=== PATIENT | female | born 1940 | race Caucasian/White ===

== ENCOUNTER 2018-05-19 09:32 | Emergency (ER) | payer MEDICARE, OTHER | END 2018-05-19 10:41 | disposition home or self-care (01) | LOC: BURERS 09:32 | DX: S61.412A Laceration without foreign body of left hand, initial encounter (principal); S00.83XA Contusion of other part of head, initial encounter; E03.9 Hypothyroidism, unspecified; E78.5 Hyperlipidemia, unspecified; I10 Essential (primary) hypertension; V00.831A Fall from motorized mobility scooter, initial encounter | CPT/HCPCS: 99283 ==

== ENCOUNTER 2018-05-31 13:48 | Inpatient (IN) | payer MEDICARE, OTHER ==
[2018-05-31] MEDS: Aspirin 81 mg Enteric Coated Tablet PO SCH (21:41)
[2018-05-31] MEDS: Cefdinir 300 MG CAP PO SCH (21:41)
[2018-05-31] MEDS: LOVASTATIN PO SCH (21:44)
[2018-05-31] MEDS: HYDROcodone/Acetaminophen 10/325 mg Tablet PO PRN (22:19)
[2018-06-01] MEDS: Levothyroxine Sodium 100 MCG TAB PO SCH (06:30)
[2018-06-01] MEDS: Potassium Chloride 20 MEQ TAB PO SCH (08:51)
[2018-06-01] MEDS: Cefdinir 300 MG CAP PO SCH ×2 (08:51→21:16)
[2018-06-01] MEDS: Aspirin 81 mg Enteric Coated Tablet PO SCH ×2 (08:51→21:16)
[2018-06-01] MEDS: HYDROcodone/Acetaminophen 10/325 mg Tablet PO PRN (11:34)
[2018-06-01] MEDS ORDERED: Ibuprofen 100 MG/5 ML UDCUP PO PRN (11:53)
--- NOTE | 2018-06-01 17:58 | HP ---
PRIMARY CARE PHYSICIAN: Dr. Lynn in [place]. CHIEF COMPLAINT: Skilled care with physical therapy status post right knee replacement. HISTORY OF PRESENT ILLNESS: Ms. Little is a pleasant 77-year-old female with hypertension, hyperlipidemia, hypothyroidism, multiple sclerosis, and vitamin D deficiency. She underwent elective right knee replacement on May 28, 2018, under Dr. Sheridan. She did fine intraoperatively, but developed urinary tract infection, acute renal insufficiency, and hypotension postoperatively. Her Benicar was held. Her blood pressure gradually improved, and creatinine on discharge was 1.3. The patient walked 120 feet 2 days postop using a rolling walker. She is able to maintain 50% partial weightbearing on right lower extremity. The patient still has a weak gait, decreased strength and insurance, hence recommendation for a senior care facility with physical therapy. Yesterday, she walked 136 feet using rolling walker with standby assist. She has [id number] pain on standing to sitting position. She denies pain at rest. Her appetite is fair. No urinary complaints. She has not had any bowel movement since Sunday. PAST MEDICAL HISTORY: 1. Hypertension. 2. Hyperlipidemia. 3. Hypothyroidism. 4. Chronic lower back pain. 5. Multiple sclerosis. 6. History of Zulema thyroiditis. 7. Vitamin D deficiency. 8. 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 PAST SURGICAL HISTORY: 1. Lumbar fusion in 2006, under Dr. Marc. 2. Left revision of shoulder replacement in 2010. 3. Right hip replacement on 09/21/2009. 4. Right lateral meniscectomy on 08/27/2015. FAMILY HISTORY: Both parents are . No family history of hypertension, cancer, or end-stage renal disease. SOCIAL HISTORY: The patient denies alcohol or tobacco use. She is , with 2 children. 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 ALLERGIES: 1. BACTRIM. 2. BENADRYL. 3. CELEBREX. 4. CODEINE. 5. DILANTIN. 6. LIPITOR. 7. LORTAB. 8. NALOXONE. 9. TALWIN. 10. ULTRAM. MEDICATIONS: 1. Lovastatin 10 mg one tablet daily. 2. Aspirin 81 mg b.i.d. 3. Cefdinir 300 mg b.i.d. 4. Vitamin D3 of 2000 units daily. 5. Clonidine 0.1 mg patch every 7 days. 6. Hydrocodone 10/325 one tablet every 4 hours p.r.n. for pain. 7. Levothyroxine 100 mcg one tablet daily. 8. Metoprolol 100 mg p.o. b.i.d. 9. Myrbetriq 25 mg q.a.m. 10. K-Dur 20 mEq daily. REVIEW OF SYSTEMS: GENERAL: No fever. No chills. No loss of appetite. HEENT: No blurred vision. No sore throat. CARDIOVASCULAR: No chest pain. No palpitation. RESPIRATORY: No shortness of breath or wheezing. GI: No nausea, vomiting, or diarrhea. MUSCULOSKELETAL: Positive for pain on the right knee with stiffness secondary to recent surgery. PSYCH: No anxiety. No depression. PHYSICAL EXAMINATION: VITAL SIGNS: Blood pressure 105/55, temperature 98.1, pulse of 68, respiratory rate of 18, and O2 saturation 95% on room air. GENERAL: The patient is alert, oriented, not in respiratory distress. HEENT: Normocephalic, atraumatic. Pupils are equally reactive to light. NECK: Supple. Negative for lymphadenopathy. CHEST AND LUNGS: Symmetrical expansion. Clear to auscultation. HEART: Regular rate and rhythm. Negative for murmur, rubs, or gallops. ABDOMEN: Soft, nontender. Normoactive bowel sounds. No CVA tenderness. EXTREMITIES: Positive for incision on right knee, clean, dry, intact with minimal tenderness. Noticeable incision site on the right knee joint, decreased range of motion. PSYCH: Appropriate affect and demeanor. LABORATORY DATA: Labs reviewed. ASSESSMENT: 1. Right lower extremity weakness status post right knee replacement. 2. Postoperative renal insufficiency. 3. Postoperative urinary tract infection. 4. Hypertension. 5. Hyperlipidemia. 6. Hypothyroidism. 7. Multiple sclerosis. 8. Vitamin D deficiency. PLAN: 1. The patient is admitted for skilled with physical and occupational therapy. Prognosis for significant improvement with reasonable time appears good. We will monitor for infection, bleeding, pain management, and side effects of current medications. She will participate with PT to address strength, range of motion, transfer training, gait transfers, and family training and safety training with progression to home exercises. She will participate with OT to address ADLs. We will reconcile her hospital medication and adjust dosage prior to her discharge. channel development manager to address how the patient can be discharged safely in a timely manner. Anticipate discharge to home in about 2 weeks. 2. We will also monitor for kidney function and start Benicar with hydrochlorothiazide if her blood pressure gets high. Job ID: [id number]
[2018-06-01] MEDS: LOVASTATIN PO SCH (21:24)
[2018-06-02 05:56] LABS: Anion Gap 12 mmol/L (10-20); BUN (Urea Nitrogen) 20 mg/dL (9.8-20.1); Calc. Creatinine Clearance 58 mL/min (70-130); Carbon Dioxide 23 mmol/L (23-31); Chloride 109 mmol/L (98-107); Estimated GFR-MDRD 64; Glucose 98 mg/dL (83-110); Potassium 3.8 mmol/L (3.5-5.1); Sodium 140 mmol/L (136-145)
[2018-06-02] MEDS: Levothyroxine Sodium 100 MCG TAB PO SCH (06:02)
[2018-06-02] MEDS: Cefdinir 300 MG CAP PO SCH ×2 (09:03→20:52)
[2018-06-02] MEDS: Potassium Chloride 20 MEQ TAB PO SCH (09:04)
[2018-06-02] MEDS: Aspirin 81 mg Enteric Coated Tablet PO SCH ×2 (09:04→20:52)
[2018-06-02] MEDS: LOVASTATIN PO SCH (20:57)
[2018-06-03] MEDS: HYDROcodone/Acetaminophen 10/325 mg Tablet PO PRN ×2 (02:40→08:20)
[2018-06-03] MEDS: Levothyroxine Sodium 100 MCG TAB PO SCH (05:31)
[2018-06-03] MEDS: Aspirin 81 mg Enteric Coated Tablet PO SCH ×2 (08:22→21:09)
[2018-06-03] MEDS: Potassium Chloride 20 MEQ TAB PO SCH (08:22)
[2018-06-03] MEDS: Cefdinir 300 MG CAP PO SCH ×2 (10:10→21:08)
[2018-06-03] MEDS: cloNIDine 0.1mg/24 Hour PATCH TD SCH (10:11)
[2018-06-03] MEDS: Acetaminophen 325 MG TAB PO PRN (21:07)
[2018-06-03] MEDS: LOVASTATIN PO SCH (21:08)
[2018-06-04] MEDS: Levothyroxine Sodium 100 MCG TAB PO SCH (05:45)
[2018-06-04] MEDS: HYDROcodone/Acetaminophen 10/325 mg Tablet PO PRN ×3 (08:32→19:47)
[2018-06-04] MEDS: Aspirin 81 mg Enteric Coated Tablet PO SCH ×2 (08:48→20:29)
[2018-06-04] MEDS: Potassium Chloride 20 MEQ TAB PO SCH (08:49)
[2018-06-04] MEDS: LOVASTATIN PO SCH (20:30)
[2018-06-05] MEDS: Levothyroxine Sodium 100 MCG TAB PO SCH (06:02)
[2018-06-05] MEDS: HYDROcodone/Acetaminophen 10/325 mg Tablet PO PRN ×2 (08:01→21:01)
[2018-06-05] MEDS: Aspirin 81 mg Enteric Coated Tablet PO SCH ×2 (10:57→20:59)
[2018-06-05] MEDS: Potassium Chloride 20 MEQ TAB PO SCH (10:58)
[2018-06-05] MEDS: LOVASTATIN PO SCH (21:04)
[2018-06-06] MEDS: Levothyroxine Sodium 100 MCG TAB PO SCH (05:43)
[2018-06-06] MEDS: Aspirin 81 mg Enteric Coated Tablet PO SCH ×2 (08:36→21:26)
[2018-06-06] MEDS: Potassium Chloride 20 MEQ TAB PO SCH (08:38)
[2018-06-06] MEDS: HYDROcodone/Acetaminophen 10/325 mg Tablet PO PRN (11:05)
[2018-06-06] MEDS: LOVASTATIN PO SCH (21:27)
[2018-06-07] MEDS: Levothyroxine Sodium 100 MCG TAB PO SCH (05:18)
[2018-06-07] MEDS: HYDROcodone/Acetaminophen 10/325 mg Tablet PO PRN ×2 (08:26→14:15)
[2018-06-07] MEDS: Aspirin 81 mg Enteric Coated Tablet PO SCH ×2 (08:28→20:33)
[2018-06-07] MEDS: Potassium Chloride 20 MEQ TAB PO SCH (08:28)
[2018-06-07] MEDS ORDERED: LIOTHYRONINE 5 MCG PO SCH (17:45)
[2018-06-07] MEDS: LOVASTATIN PO SCH (20:34)
[2018-06-08] MEDS: HYDROcodone/Acetaminophen 10/325 mg Tablet PO PRN ×2 (01:55→10:04)
[2018-06-08] MEDS: Levothyroxine Sodium 100 MCG TAB PO SCH (05:58)
[2018-06-08] MEDS: LIOTHYRONINE 5 MCG PO SCH ×2 (05:58→11:00)
[2018-06-08] MEDS: Potassium Chloride 20 MEQ TAB PO SCH (09:55)
[2018-06-08] MEDS: Aspirin 81 mg Enteric Coated Tablet PO SCH ×2 (09:56→21:16)
[2018-06-08] MEDS: Acetaminophen 325 MG TAB PO PRN (21:16)
[2018-06-08] MEDS: LOVASTATIN PO SCH (21:17)
[2018-06-09] MEDS: Levothyroxine Sodium 100 MCG TAB PO SCH (05:59)
[2018-06-09] MEDS: LIOTHYRONINE 5 MCG PO SCH ×2 (06:01→11:00)
[2018-06-09] MEDS: Aspirin 81 mg Enteric Coated Tablet PO SCH ×2 (09:46→21:15)
[2018-06-09] MEDS: Potassium Chloride 20 MEQ TAB PO SCH (09:46)
[2018-06-09] MEDS: HYDROcodone/Acetaminophen 10/325 mg Tablet PO PRN (14:52)
[2018-06-09] MEDS: LOVASTATIN PO SCH (21:14)
[2018-06-09] MEDS ORDERED: Ibuprofen 100 MG/5 ML UDCUP ONE (21:23)
[2018-06-10 03:13] VITALS: BMI 26.7
[2018-06-10] MEDS: Levothyroxine Sodium 100 MCG TAB PO SCH (05:24)
[2018-06-10] MEDS: LIOTHYRONINE 5 MCG PO SCH ×2 (05:25→11:58)
[2018-06-10] MEDS: Potassium Chloride 20 MEQ TAB PO SCH (08:57)
[2018-06-10] MEDS: Amlodipine 5 MG TAB PO SCH (09:01)
[2018-06-10] MEDS: HYDROcodone/Acetaminophen 10/325 mg Tablet PO PRN (09:08)
[2018-06-10] MEDS: cloNIDine 0.1mg/24 Hour PATCH TD SCH (09:09)
[2018-06-10] MEDS: Aspirin 81 mg Enteric Coated Tablet PO SCH ×2 (10:43→20:31)
[2018-06-10] MEDS ORDERED: SMX/TMP 800-160mg/20 ML UDCUP ONE (13:59)
[2018-06-10] MEDS ORDERED: Ibuprofen 200 MG TAB PO PRN (16:30)
[2018-06-10] MEDS: LOVASTATIN PO SCH (20:31)
[2018-06-11] MEDS: HYDROcodone/Acetaminophen 10/325 mg Tablet PO PRN ×2 (02:02→08:25)
[2018-06-11] MEDS: Levothyroxine Sodium 100 MCG TAB PO SCH (05:43)
[2018-06-11] MEDS: Liothyronine Sodium 5 MCG TAB PO SCH ×2 (05:45→11:03)
[2018-06-11] MEDS: Aspirin 81 mg Enteric Coated Tablet PO SCH ×2 (09:33→20:51)
[2018-06-11] MEDS: Amlodipine 5 MG TAB PO SCH (09:33)
[2018-06-11] MEDS: Potassium Chloride 20 MEQ TAB PO SCH (09:34)
[2018-06-11] MEDS: LOVASTATIN PO SCH (20:52)
[2018-06-12] MEDS: Levothyroxine Sodium 100 MCG TAB PO SCH (06:09)
[2018-06-12] MEDS: Liothyronine Sodium 5 MCG TAB PO SCH ×2 (06:09→11:16)
[2018-06-12 06:26] VITALS: TEMP 97.8
[2018-06-12 06:32] VITALS: BP 111/60
[2018-06-12] MEDS: HYDROcodone/Acetaminophen 10/325 mg Tablet PO PRN (08:45)
[2018-06-12] MEDS: Amlodipine 5 MG TAB PO SCH (08:46)
[2018-06-12] MEDS: Aspirin 81 mg Enteric Coated Tablet PO SCH (08:47)
[2018-06-12] MEDS: Potassium Chloride 20 MEQ TAB PO SCH (08:48)
== END 2018-06-12 14:45 | disposition home or self-care (01) | DRG 561 ==
LOC: BURMED 14:19
PROVIDERS: ADMIT Family Medicine; ATTEND Family Medicine
DX: Z47.1 Aftercare following joint replacement surgery (principal); I10 Essential (primary) hypertension; E78.5 Hyperlipidemia, unspecified; E03.9 Hypothyroidism, unspecified; G35 Multiple sclerosis; E55.9 Vitamin D deficiency, unspecified; G89.29 Other chronic pain; M54.5 Low back pain; R53.1 Weakness; Z96.612 Presence of left artificial shoulder joint; Z96.641 Presence of right artificial hip joint; Z87.440 Personal history of urinary (tract) infections; Z86.73 Personal history of transient ischemic attack (TIA), and cerebral infarction without residual deficits; Z98.1 Arthrodesis status; Z79.82 Long term (current) use of aspirin
CPT/HCPCS: 36415; 80048

== ENCOUNTER 2019-07-30 18:36 | Emergency (ER) | payer MEDICARE, OTHER ==
[2019-07-30 19:04] LABS: #Basophils 0.1 thou/uL (0.0-0.2); #Eosinphils 0.2 thou/uL (0.0-0.7); #Lymphocytes 1.4 thou/uL (1.20-3.40); #Monocytes 0.7 thou/uL (0.11-0.59); %Basophils 1.1 % (0.0-1.0); %Eosinophils 2.9 % (0.0-10.0); %Lymphocytes 21.5 % (21.0-51.0); %Monocytes 11.1 % (0.0-10.0); %Neutrophils 63.4 % (42.0-75.0); Hemoglobin 14.6 g/dL (12.0-16.0); Mean Corpuscular HGB CONC 31.8 g/dL (32.0-36.0); Mean Corpuscular Hemoglobin 31.8 pg (27.0-31.0); Mean Platelet Volume 7.7 fL (7.4-10.4); Platelet Count 193 thou/uL (130-400); RBC Distribution Width 12.9 % (11.5-14.5); Red Blood Cell (RBC) Count 4.57 mill/uL (4.20-5.40); White Blood Cell (WBC) Count 6.3 thou/uL (4.8-10.8)
[2019-07-30 19:05] LABS: INR-International Normal Ratio 0.9; PTT 29.9 SEC (22.9-36.1); Prothrombin Time 12.6 SEC (12.0-14.7)
[2019-07-30 19:13] LABS: ALT (SGPT) 30 U/L (8-55); AST (SGOT) 30 U/L (5-34); Albumin 3.9 g/dL (3.4-4.8); Alkaline Phosphatase 86 U/L (40-110); Anion Gap 17 mmol/L (10-20); BUN (Urea Nitrogen) 30 mg/dL (9.8-20.1); Bilirubin, Total 0.4 mg/dL (0.2-1.2); Calc. Creatinine Clearance 0 mL/min (70-130); Calcium 9.6 mg/dL (7.8-10.44); Carbon Dioxide 23 mmol/L (23-31); Chloride 107 mmol/L (98-107); Estimated GFR-MDRD 33; Globulin 3.3 g/dL (2.4-3.5); Glucose 128 mg/dL (83-110); Potassium 3.9 mmol/L (3.5-5.1); Protein, Total 7.2 g/dL (6.0-8.3); Sodium 143 mmol/L (136-145)
[2019-07-30] MEDS ORDERED: Fentanyl 100 MCG/2 ML VIAL ONE (19:13)
--- NOTE | 2019-07-30 20:20 | RAD ---
PELVIS 07/30/19 Two films are submitted and compared with a prior study of 09/21/09. There is an impacted subcapital fracture through the left femoral neck. There is no dislocation of th e femoral head. The left hip joint is narrowed. An arthroplasty is seen involving the right hip. The adjacent pubic rings are intact and the symphysis shows no widening or off-set. The SI joints are sym metrical. The top to the iliac crests are not seen on this film. IMPRESSION: Impacted subcapital fracture of the left femoral neck. Findings discussed with Dr. Rosales at 1922. POS: HOME
--- NOTE | 2019-07-30 20:21 | RAD ---
LEFT HIP TWO VIEWS: 07/30/19 An impacted subcapital fracture of the left femoral neck is present. It was not present on a 2010 elissa dy of the pelvis. The adjacent pubic ring appears intact. There is no dislocation of the femoral head . IMPRESSION: Impacted subcapital fracture of the left femoral neck. Findings discussed with Dr. Rosales at 1922 on 07/30/2019. POS: HOME
== END 2019-07-30 19:52 | disposition short-term general hospital (02) ==
LOC: BURERS 18:36
DX: S72.012A Unspecified intracapsular fracture of left femur, initial encounter for closed fracture (principal); E03.9 Hypothyroidism, unspecified; E78.5 Hyperlipidemia, unspecified; I10 Essential (primary) hypertension; Z86.73 Personal history of transient ischemic attack (TIA), and cerebral infarction without residual deficits; W18.30XA Fall on same level, unspecified, initial encounter
CPT/HCPCS: 72170; 80053; 85025; 85610; 85730; 96374; J3010

== ENCOUNTER 2019-08-02 15:59 | Inpatient (IN) | payer MEDICARE, OTHER ==
[2019-08-02 16:39] VITALS: BMI 28.3
[2019-08-02] MEDS ORDERED: cloNIDine 0.1 MG TAB PO PRN (18:58)
[2019-08-02] MEDS: Aspirin 81 mg Enteric Coated Tablet PO SCH (20:15)
[2019-08-02] MEDS ORDERED: LOVASTATIN 40 MG PO SCH (21:00)
[2019-08-02] MEDS: Acetaminophen 500 MG TAB PO SCH (23:22)
[2019-08-03] MEDS ORDERED: Levothyroxine Sodium 75 MCG TAB PO SCH (06:00)
[2019-08-03] MEDS: Acetaminophen 500 MG TAB PO SCH ×4 (06:01→23:54)
[2019-08-03] MEDS: Levothyroxine Sodium 25 MCG TAB PO SCH (06:05)
[2019-08-03] MEDS: Liothyronine Sodium 5 MCG TAB PO SCH (08:34)
[2019-08-03] MEDS: Aspirin 81 mg Enteric Coated Tablet PO SCH ×2 (08:34→20:20)
[2019-08-03] MEDS: Potassium Chloride 20 MEQ TAB PO SCH (08:35)
[2019-08-03] MEDS: Amlodipine 5 MG TAB PO SCH (08:35)
[2019-08-03] MEDS: Hydrochlorothiazide 25 MG TAB PO SCH (08:36)
[2019-08-03] MEDS: Losartan Potassium 50 MG TAB PO SCH (08:36)
[2019-08-03] MEDS ORDERED: [UNRECOGNIZED DRUG - OTHER] PO SCH (09:00)
[2019-08-03] MEDS ORDERED: cloNIDine 0.1mg/24 Hour PATCH TD SCH (09:00)
[2019-08-03 16:14] LABS: Bilirubin Negative (Negative); Blood, Urine Small (Negative); Clarity Clear (Clear); Glucose, Urine (Dipstick) Negative (Negative); Leukocyte Trace (Negative); Nitrite Negative (Negative); Protein, Urine (Dipstick) Trace mg/dL (Neg-Trace); Urobilinogen 0.2 mg/dL (Less than 2)
[2019-08-03 16:21] LABS: Bacteria/HPF Rare-Few HPF (None Seen); Broad Cast None Seen LPF (None Seen); Calcium Oxalate Crystals None Seen HPF (None Seen); Cellular Cast None Seen LPF (None Seen); Epithelial Cast None Seen LPF (None Seen); Fatty Cast None Seen LPF (None Seen); Mucous/LPF None Seen LPF (<2+); Other Casts None Seen LPF (None Seen); Oval Fat Bodies/HPF None Seen HPF (None Seen); RBC/HPF 0-3 HPF (0-3); Red Blood Cell Cast None Seen LPF (None Seen); Renal Epithelial None Seen HPF (None Seen); Sperm/HPF None Seen HPF (None Seen); Squamous Epithelial None Seen HPF (0-3); Transitional Epithelial None Seen HPF (None Seen); Trichomonas/HPF None Seen HPF (None Seen); Triple Phosphate Crystal None Seen HPF (None Seen); Unclassified Crystals None Seen HPF (None Seen); Waxy Cast None Seen LPF (None Seen); White Blood Cell Cast None Seen LPF (None Seen); Yeast-Budding None Seen HPF (None Seen); Yeast-Hyphae None Seen HPF (None Seen)
[2019-08-04] MEDS: Acetaminophen 500 MG TAB PO SCH ×4 (05:31→23:58)
[2019-08-04] MEDS: Levothyroxine Sodium 25 MCG TAB PO SCH (05:32)
[2019-08-04] MEDS: Hydrochlorothiazide 25 MG TAB PO SCH (08:21)
[2019-08-04] MEDS: Aspirin 81 mg Enteric Coated Tablet PO SCH ×2 (08:21→20:26)
[2019-08-04] MEDS: Amlodipine 5 MG TAB PO SCH (08:22)
[2019-08-04] MEDS: Losartan Potassium 50 MG TAB PO SCH (08:22)
[2019-08-04] MEDS: Potassium Chloride 20 MEQ TAB PO SCH (08:23)
[2019-08-04] MEDS: Liothyronine Sodium 5 MCG TAB PO SCH (08:23)
[2019-08-04] MEDS: cloNIDine 0.1mg/24 Hour PATCH TD SCH (08:23)
[2019-08-04] MEDS: Ibuprofen 600 MG TAB PO PRN (15:43)
[2019-08-05] MEDS: Levothyroxine Sodium 25 MCG TAB PO SCH (05:41)
[2019-08-05] MEDS: Acetaminophen 500 MG TAB PO SCH ×4 (05:41→23:27)
[2019-08-05] MEDS: Amlodipine 5 MG TAB PO SCH (09:02)
[2019-08-05] MEDS: Liothyronine Sodium 5 MCG TAB PO SCH (09:03)
[2019-08-05] MEDS: Potassium Chloride 20 MEQ TAB PO SCH (09:03)
[2019-08-05] MEDS: Hydrochlorothiazide 25 MG TAB PO SCH (09:04)
[2019-08-05] MEDS: Losartan Potassium 50 MG TAB PO SCH (09:05)
[2019-08-05] MEDS: Aspirin 81 mg Enteric Coated Tablet PO SCH ×2 (09:05→20:18)
[2019-08-06] MEDS: Levothyroxine Sodium 25 MCG TAB PO SCH (05:40)
[2019-08-06] MEDS: Acetaminophen 500 MG TAB PO SCH ×4 (05:40→23:08)
[2019-08-06] MEDS: Losartan Potassium 50 MG TAB PO SCH (08:38)
[2019-08-06] MEDS: Potassium Chloride 20 MEQ TAB PO SCH (08:38)
[2019-08-06] MEDS: Liothyronine Sodium 5 MCG TAB PO SCH (08:38)
[2019-08-06] MEDS: Aspirin 81 mg Enteric Coated Tablet PO SCH ×2 (08:38→20:40)
[2019-08-06] MEDS: Hydrochlorothiazide 25 MG TAB PO SCH (08:39)
[2019-08-06] MEDS: Amlodipine 5 MG TAB PO SCH (08:43)
[2019-08-06] MEDS: Ibuprofen 600 MG TAB PO PRN (10:17)
[2019-08-07] MEDS: Levothyroxine Sodium 25 MCG TAB PO SCH (05:42)
[2019-08-07] MEDS: Acetaminophen 500 MG TAB PO SCH ×4 (05:43→23:57)
[2019-08-07] MEDS: Ibuprofen 600 MG TAB PO PRN (09:30)
[2019-08-07] MEDS: Aspirin 81 mg Enteric Coated Tablet PO SCH ×2 (09:31→20:45)
[2019-08-07] MEDS: Potassium Chloride 20 MEQ TAB PO SCH (09:31)
[2019-08-07] MEDS: Amlodipine 5 MG TAB PO SCH (09:31)
[2019-08-07] MEDS: Hydrochlorothiazide 25 MG TAB PO SCH (09:35)
[2019-08-07] MEDS: Liothyronine Sodium 5 MCG TAB PO SCH (09:36)
[2019-08-07] MEDS: Losartan Potassium 50 MG TAB PO SCH (09:36)
[2019-08-08] MEDS: Levothyroxine Sodium 25 MCG TAB PO SCH (05:49)
[2019-08-08] MEDS: Acetaminophen 500 MG TAB PO SCH ×4 (05:49→23:53)
[2019-08-08] MEDS: Ibuprofen 600 MG TAB PO PRN (08:49)
[2019-08-08] MEDS: Losartan Potassium 50 MG TAB PO SCH (08:50)
[2019-08-08] MEDS: Hydrochlorothiazide 25 MG TAB PO SCH (08:50)
[2019-08-08] MEDS: Aspirin 81 mg Enteric Coated Tablet PO SCH ×2 (08:51→20:42)
[2019-08-08] MEDS: Potassium Chloride 20 MEQ TAB PO SCH (08:51)
[2019-08-08] MEDS: Liothyronine Sodium 5 MCG TAB PO SCH (08:51)
[2019-08-08] MEDS: Amlodipine 5 MG TAB PO SCH (08:51)
[2019-08-09] MEDS: Levothyroxine Sodium 25 MCG TAB PO SCH (05:57)
[2019-08-09] MEDS: Acetaminophen 500 MG TAB PO SCH ×4 (05:57→23:28)
[2019-08-09] MEDS: Aspirin 81 mg Enteric Coated Tablet PO SCH ×2 (08:33→20:20)
[2019-08-09] MEDS: Losartan Potassium 50 MG TAB PO SCH (08:34)
[2019-08-09] MEDS: Hydrochlorothiazide 25 MG TAB PO SCH (08:36)
[2019-08-09] MEDS: Liothyronine Sodium 5 MCG TAB PO SCH (08:37)
[2019-08-09] MEDS: Amlodipine 5 MG TAB PO SCH (08:37)
[2019-08-09] MEDS: Potassium Chloride 20 MEQ TAB PO SCH (08:38)
[2019-08-10] MEDS: Acetaminophen 500 MG TAB PO SCH ×4 (05:31→23:43)
[2019-08-10] MEDS: Levothyroxine Sodium 25 MCG TAB PO SCH (05:31)
[2019-08-10] MEDS: Aspirin 81 mg Enteric Coated Tablet PO SCH ×2 (08:46→20:47)
[2019-08-10] MEDS: Amlodipine 5 MG TAB PO SCH (08:46)
[2019-08-10] MEDS: Liothyronine Sodium 5 MCG TAB PO SCH (08:47)
[2019-08-10] MEDS: Hydrochlorothiazide 25 MG TAB PO SCH (08:47)
[2019-08-10] MEDS: Potassium Chloride 20 MEQ TAB PO SCH (08:47)
[2019-08-10] MEDS: Losartan Potassium 50 MG TAB PO SCH (08:48)
[2019-08-11] MEDS: Levothyroxine Sodium 25 MCG TAB PO SCH (05:26)
[2019-08-11] MEDS: Acetaminophen 500 MG TAB PO SCH ×3 (05:26→17:21)
[2019-08-11] MEDS: Liothyronine Sodium 5 MCG TAB PO SCH (08:13)
[2019-08-11] MEDS: Potassium Chloride 20 MEQ TAB PO SCH (08:14)
[2019-08-11] MEDS: Hydrochlorothiazide 25 MG TAB PO SCH (08:14)
[2019-08-11] MEDS: Amlodipine 5 MG TAB PO SCH (08:14)
[2019-08-11] MEDS: Ibuprofen 600 MG TAB PO PRN (08:14)
[2019-08-11] MEDS: Aspirin 81 mg Enteric Coated Tablet PO SCH ×2 (08:14→20:31)
[2019-08-11] MEDS: Losartan Potassium 50 MG TAB PO SCH (08:15)
[2019-08-11] MEDS: cloNIDine 0.1mg/24 Hour PATCH TD SCH (08:16)
[2019-08-12] MEDS: Acetaminophen 500 MG TAB PO SCH ×4 (00:06→17:19)
[2019-08-12] MEDS: Levothyroxine Sodium 25 MCG TAB PO SCH (05:30)
[2019-08-12] MEDS: Potassium Chloride 20 MEQ TAB PO SCH (08:32)
[2019-08-12] MEDS: Liothyronine Sodium 5 MCG TAB PO SCH (08:32)
[2019-08-12] MEDS: Losartan Potassium 50 MG TAB PO SCH (08:32)
[2019-08-12] MEDS: Amlodipine 5 MG TAB PO SCH (08:32)
[2019-08-12] MEDS: Ibuprofen 600 MG TAB PO PRN (08:32)
[2019-08-12] MEDS: Hydrochlorothiazide 25 MG TAB PO SCH (08:33)
[2019-08-12] MEDS: Aspirin 81 mg Enteric Coated Tablet PO SCH ×2 (08:33→20:47)
[2019-08-13] MEDS: Acetaminophen 500 MG TAB PO SCH ×5 (00:06→23:25)
[2019-08-13] MEDS: Levothyroxine Sodium 25 MCG TAB PO SCH (05:28)
[2019-08-13] MEDS: Losartan Potassium 50 MG TAB PO SCH (08:31)
[2019-08-13] MEDS: Aspirin 81 mg Enteric Coated Tablet PO SCH ×2 (08:32→20:22)
[2019-08-13] MEDS: Amlodipine 5 MG TAB PO SCH (08:32)
[2019-08-13] MEDS: Potassium Chloride 20 MEQ TAB PO SCH (08:33)
[2019-08-13] MEDS: Hydrochlorothiazide 25 MG TAB PO SCH (08:33)
[2019-08-13] MEDS: Liothyronine Sodium 5 MCG TAB PO SCH (08:34)
[2019-08-14] MEDS: Acetaminophen 500 MG TAB PO SCH ×4 (05:39→23:43)
[2019-08-14] MEDS: Levothyroxine Sodium 25 MCG TAB PO SCH (05:40)
[2019-08-14] MEDS: Aspirin 81 mg Enteric Coated Tablet PO SCH ×2 (09:57→21:16)
[2019-08-14] MEDS: Potassium Chloride 20 MEQ TAB PO SCH (09:57)
[2019-08-14] MEDS: Losartan Potassium 50 MG TAB PO SCH (09:57)
[2019-08-14] MEDS: Hydrochlorothiazide 25 MG TAB PO SCH (09:58)
[2019-08-14] MEDS: Amlodipine 5 MG TAB PO SCH (09:58)
[2019-08-14] MEDS: Liothyronine Sodium 5 MCG TAB PO SCH (09:59)
[2019-08-15] MEDS: Levothyroxine Sodium 25 MCG TAB PO SCH (05:35)
[2019-08-15] MEDS: Acetaminophen 500 MG TAB PO SCH ×3 (05:35→17:23)
[2019-08-15] MEDS: Potassium Chloride 20 MEQ TAB PO SCH (08:16)
[2019-08-15] MEDS: Amlodipine 10 MG TAB PO SCH (08:17)
[2019-08-15] MEDS: Hydrochlorothiazide 25 MG TAB PO SCH (08:17)
[2019-08-15] MEDS: Losartan Potassium 50 MG TAB PO SCH (08:17)
[2019-08-15] MEDS: Aspirin 81 mg Enteric Coated Tablet PO SCH ×2 (08:17→20:23)
[2019-08-15] MEDS: Liothyronine Sodium 5 MCG TAB PO SCH (08:17)
[2019-08-15] MEDS: Ibuprofen 600 MG TAB PO PRN (14:08)
[2019-08-16] MEDS: Acetaminophen 500 MG TAB PO SCH ×5 (00:42→23:30)
[2019-08-16] MEDS: Levothyroxine Sodium 25 MCG TAB PO SCH (05:46)
[2019-08-16] MEDS: Losartan Potassium 50 MG TAB PO SCH (08:46)
[2019-08-16] MEDS: Potassium Chloride 20 MEQ TAB PO SCH (08:47)
[2019-08-16] MEDS: Hydrochlorothiazide 25 MG TAB PO SCH (08:47)
[2019-08-16] MEDS: Liothyronine Sodium 5 MCG TAB PO SCH (08:47)
[2019-08-16] MEDS: Amlodipine 10 MG TAB PO SCH (08:48)
[2019-08-16] MEDS: Aspirin 81 mg Enteric Coated Tablet PO SCH ×2 (08:49→20:01)
[2019-08-16] MEDS: Ibuprofen 600 MG TAB PO PRN (16:48)
[2019-08-17] MEDS: Acetaminophen 500 MG TAB PO SCH ×4 (05:44→23:46)
[2019-08-17] MEDS: Levothyroxine Sodium 25 MCG TAB PO SCH (05:44)
[2019-08-17] MEDS: Hydrochlorothiazide 25 MG TAB PO SCH (09:33)
[2019-08-17] MEDS: Losartan Potassium 50 MG TAB PO SCH (09:33)
[2019-08-17] MEDS: Potassium Chloride 20 MEQ TAB PO SCH (09:34)
[2019-08-17] MEDS: Liothyronine Sodium 5 MCG TAB PO SCH (09:34)
[2019-08-17] MEDS: Amlodipine 10 MG TAB PO SCH (09:34)
[2019-08-17] MEDS: Aspirin 81 mg Enteric Coated Tablet PO SCH ×2 (09:35→20:22)
[2019-08-18] MEDS: Acetaminophen 500 MG TAB PO SCH ×4 (05:28→23:50)
[2019-08-18] MEDS: Levothyroxine Sodium 25 MCG TAB PO SCH (05:29)
[2019-08-18] MEDS: cloNIDine 0.1mg/24 Hour PATCH TD SCH (09:06)
[2019-08-18] MEDS: Amlodipine 10 MG TAB PO SCH (09:08)
[2019-08-18] MEDS: Hydrochlorothiazide 25 MG TAB PO SCH (09:08)
[2019-08-18] MEDS: Liothyronine Sodium 5 MCG TAB PO SCH (09:08)
[2019-08-18] MEDS: Potassium Chloride 20 MEQ TAB PO SCH (09:09)
[2019-08-18] MEDS: Losartan Potassium 50 MG TAB PO SCH (09:09)
[2019-08-18] MEDS: Aspirin 81 mg Enteric Coated Tablet PO SCH ×2 (09:09→20:17)
[2019-08-18] MEDS: Ibuprofen 600 MG TAB PO PRN (09:11)
[2019-08-19] MEDS: Levothyroxine Sodium 25 MCG TAB PO SCH (05:47)
[2019-08-19] MEDS: Acetaminophen 500 MG TAB PO SCH (05:47)
[2019-08-19] MEDS: Potassium Chloride 20 MEQ TAB PO SCH (08:56)
[2019-08-19] MEDS: Aspirin 81 mg Enteric Coated Tablet PO SCH (08:56)
[2019-08-19] MEDS: Liothyronine Sodium 5 MCG TAB PO SCH (08:56)
[2019-08-19] MEDS: Losartan Potassium 50 MG TAB PO SCH (08:57)
[2019-08-19] MEDS: Amlodipine 10 MG TAB PO SCH (08:57)
[2019-08-19] MEDS: Hydrochlorothiazide 25 MG TAB PO SCH (08:57)
[2019-08-19 10:29] VITALS: BP 136/65; TEMP 97.9
[2019-08-19 11:08] LABS: Anion Gap 15 mmol/L (10-20); BUN (Urea Nitrogen) 35 mg/dL (9.8-20.1); Calc. Creatinine Clearance 46 mL/min (70-130); Calcium 10.1 mg/dL (7.8-10.44); Carbon Dioxide 24 mmol/L (23-31); Chloride 105 mmol/L (98-107); Estimated GFR-MDRD 46; Glucose 81 mg/dL (83-110); Potassium 3.9 mmol/L (3.5-5.1); Sodium 140 mmol/L (136-145)
== END 2019-08-19 11:20 | disposition home health service (06) | DRG 561 ==
LOC: BURMED 15:59
PROVIDERS: ADMIT Family Medicine; ATTEND Family Medicine
DX: Z47.1 Aftercare following joint replacement surgery (principal); E03.9 Hypothyroidism, unspecified; I10 Essential (primary) hypertension; E06.3 Autoimmune thyroiditis; S72.002D Fracture of unspecified part of neck of left femur, subsequent encounter for closed fracture with routine healing; Z91.81 History of falling; Z88.8 Allergy status to other drugs, medicaments and biological substances; Z88.6 Allergy status to analgesic agent; Z88.2 Allergy status to sulfonamides
CPT/HCPCS: 36415; 80048; 81001; 87086

== ENCOUNTER 2021-10-09 09:59 | Emergency (ER) | payer MEDICARE, OTHER | END 2021-10-09 10:40 | disposition home or self-care (01) | LOC: BURERS 09:59 | DX: S01.81XA Laceration without foreign body of other part of head, initial encounter (principal); E03.9 Hypothyroidism, unspecified; E78.5 Hyperlipidemia, unspecified; I10 Essential (primary) hypertension; Z79.82 Long term (current) use of aspirin; Z86.73 Personal history of transient ischemic attack (TIA), and cerebral infarction without residual deficits; V00.811A Fall from moving wheelchair (powered), initial encounter | CPT/HCPCS: 12011 ==

== ENCOUNTER 2021-11-16 00:16 | Emergency (ER) | payer OTHER, MEDICARE ==
[2021-11-16 02:11] LABS: #Basophils 0.1 thou/uL (0.0-0.2); #Eosinphils 0.3 thou/uL (0.0-0.7); #Monocytes 1.1 thou/uL (0.11-0.59); #Neutrophils 7.4 thou/uL (1.40-6.50); %Basophils 0.9 % (0.0-1.0); %Eosinophils 2.9 % (0.0-10.0); %Monocytes 11.2 % (0.0-10.0); %Neutrophils 75.1 % (42.0-75.0); Hemoglobin 12.4 g/dL (12.0-16.0); Mean Corpuscular HGB CONC 34.3 g/dL (32.0-36.0); Mean Corpuscular Hemoglobin 32.9 pg (27.0-31.0); Mean Corpuscular Volume 95.7 fL (78.0-98.0); Mean Platelet Volume 7.8 fL (7.4-10.4); Platelet Count 212 thou/uL (130-400); Red Blood Cell (RBC) Count 3.77 mill/uL (4.20-5.40); White Blood Cell (WBC) Count 9.9 thou/uL (4.8-10.8)
[2021-11-16 02:26] LABS: ALT (SGPT) 22 U/L (8-55); AST (SGOT) 48 U/L (5-34); Albumin 3.8 g/dL (3.4-4.8); Alkaline Phosphatase 57 U/L (40-110); Anion Gap 18 mmol/L (10-20); BUN (Urea Nitrogen) 38 mg/dL (9.8-20.1); Bilirubin, Total 1.4 mg/dL (0.2-1.2); Calc. Creatinine Clearance 0 mL/min (70-130); Calcium 9.7 mg/dL (7.8-10.44); Carbon Dioxide 20 mmol/L (23-31); Chloride 103 mmol/L (98-107); Estimated GFR 26; Globulin 2.9 g/dL (2.4-3.5); Glucose 87 mg/dL (83-110); Protein, Total 6.7 g/dL (5.8-8.1); Sodium 137 mmol/L (136-145)
[2021-11-16] MEDS ORDERED: Ketorolac Tromethamine 30 MG/ML VIAL ONE (03:37)
[2021-11-16] MEDS ORDERED: Nitrofurantoin Monohyd/M-Cryst 100 MG CAP ONE (03:37)
[2021-11-16 07:33] LABS: Bilirubin Negative (Negative); Blood, Urine Moderate (Negative); Clarity Slightly Cloudy (Clear); Glucose, Urine (Dipstick) Negative (Negative); Ketone, Urine 15 mg/dL (Negative); Leukocyte Small (Negative); Nitrite Positive (Negative); Protein, Urine (Dipstick) 30 mg/dL (Neg-Trace); Specific Gravity, Urine 1.015 (1.005-1.030); Urobilinogen 0.2 mg/dL (Less than 2); pH, Urine 5.5 (5.0-9.0)
[2021-11-16 07:39] LABS: Bacteria/HPF 1+ HPF (None Seen); Squamous Epithelial 0-3 HPF (0-3); WBC/HPF 0-3 HPF (0-3)
== END 2021-11-16 03:30 | disposition home or self-care (01) ==
LOC: BURERS 00:16
DX: S80.01XA Contusion of right knee, initial encounter (principal); M25.551 Pain in right hip; N39.0 Urinary tract infection, site not specified; N28.9 Disorder of kidney and ureter, unspecified; I10 Essential (primary) hypertension; E78.5 Hyperlipidemia, unspecified; E03.9 Hypothyroidism, unspecified; G35 Multiple sclerosis; R29.6 Repeated falls; Z86.73 Personal history of transient ischemic attack (TIA), and cerebral infarction without residual deficits; W18.30XA Fall on same level, unspecified, initial encounter
CPT/HCPCS: 36415; 51701; 80053; 81003; 81015; 84484; 85025; 87077; 87086; 87186; 94760; 96372; J1885